=== PATIENT | female | born 1980 | race Caucasian/White ===

== ENCOUNTER 2024-11-22 19:25 | Emergency (ER) | payer OTHER, SELFPAY ==
--- OUTSIDE RECORDS SUMMARY | 2024-11-22 19:28 | XMS_ITS | Encounter Summary ---
Author Organization [employer] Address [address], [place] [address] Care Team Providers Care Assistant Secretary Name Role Phone Carlito Tripp MD Primary Care Provider [phone] Reason for Visit * Reason Comments Refill fluticasone propiona te (FLONASE) 50 MCG/ACT nasal solution [Pharmacy Med Name: FLUTICASONE PROP 50 MCG SPRAY]; omeprazole (PRILOSEC) 20 MG capsule [Pharmacy Med Name: OMEPRAZOLE DR 20 MG CAPSULE] Encounter Details Date Type Department Care Team (Late st Contact Info) Description 11/14/[address] [facility] Medicine [address] [place] [address] Carlito Tripp [place] [id number] [place] [id number] Refill (fluticasone propionate (FLONASE) 50 MCG/ACT nasal solution [Pharmacy Med Name: FLUTICASONE PROP 50 MCG SPRAY]; omeprazole (PRILOSEC) 20 MG capsule [Pharmacy Med Name: OMEPRAZOLE DR 20 MG CAPSULE]) Social History Tobacco Use Types Packs/Day Years Used Date Smoking Tobacco: Every Day Cigarettes 0.5 13 Smokeless Tobacco: Former Quit: 10/02/2016 Comments:Smoking History Pac ks/day: Alcohol Use Standard Drinks/Week Comments Yes 4 (1 standard drink = 0.6 oz pur e alcohol) PHQ-2 Answer Date Recorded PHQ-2 Score 0 09/19/2020 Financial Resource Strain Answer Date R ecorded Is it hard for you to pay fo r the very basics like food, housing, medical care or heating? No 07/29/2023 Food Insecurity Answer Date Recorded Does your food run out before you have the money to buy more? No 07/29/2023 Transportation Needs Answer Date Record ed Does a lack of transportatio n keep you from your medical appointments or from getting your medications? 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 Requested Prescriptions Pending Prescriptions Disp Refills ??? fluticasone propionate (FLONASE) 50 MCG/ACT nasal solution [Pharmacy Med Name: FLUTICASONE PROP50 MCG SPRAY] 48 mL 0 Sig: SPRAY 2 SPRAYS INTO EACH NOSTRIL EVERY DAY ??? omeprazole (PRILOSEC) 20 MG capsule [Pharmacy Med Name: OMEPRAZOLE DR 20 MG CAPSULE] 90 Capsule0 Sig: TAKE 1 CAPSULE (20 MG) BY MOUTH EVERY DAY 1 HOUR BEFORE A MEAL. * Brooke Malave RN - 11/17/2024 3:41 PM CDT Renewed medication per medication refill standing order. Requested Prescriptions Pending Prescriptions Disp Refills ??? fluticasone propionate (FLONASE) 50 MCG/ACT nasal solution [Pharmacy Med Name: FLUTICASONE PROP50 MCG SPRAY] 48 mL Sig: SPRAY 2 SPRAYS INTO EACH NOSTRIL EVERY DAY ??? omeprazole (PRILOSEC) 20 MG capsule [Pharmacy Med Name: OMEPRAZOLE DR 20 MG CAPSULE] 90 Capsule0 Sig: TAKE 1 CAPSULE (20 MG) BY MOUTH EVERY DAY 1 HOUR BEFORE A MEAL. * Oli Pendleton [employer] - 11/14/2024 12:24 AM CDT fluticasone propionate (FLONASE) 50 MCG/ACT nasal solution [Pharmacy Med Name: FLUTICASONE PROP 50 MCG SPRAY] Medication started: 04/06/2022 Last ordered by CARLITO TRIPP: 07/29/2024 (108 days ago) QTY: 3, Refills: 0, Sig: spray 2 spraysinto each nostril every day (unchanged) -> An office visit is overdue (performed 13 months ago, required every 12 months). -> Refill x 1 month (courtesy refill. overdue for an office visit) -> Calculate the quantity and number of refills manually. Last qualifying visit: 10/30/2023 (with CARLITO TRIPP) (A more recent visit (in Family Practice with EDGAR NGUYEN) was found) Next scheduled visit: 11/30/2024 (with CARLITO TRIPP) [facility] Embedded Refills, Reference: [id number], 11/14/2024 12:24:54 AM Dayana NÚÑEZ Refill [facility] [[id number]] ([id number]) omeprazole (PRILOSEC) 20 MG capsule [Pharmacy Med Name: OMEPRAZOLE DR 20 MG CAPSULE] Medication started: 08/19/2019 Last ordered by CARLITO TRIPP (90 days ago) QTY: 90, Refills: 0, Sig: take 1 capsule(20 mg) by mouth every day 1 hour before a meal. (unchanged) -> An office visit is overdue (performed 13 months ago, required every 12 months). -> Refill x 1 month (courtesy refill. overdue for an office visit) Last qualifying visit: 10/30/2023 (with CARLITO TRIPP) (A more recent visit (in Family Practice with EDGAR NGUYEN) was found) Next scheduled visit: 11/30/2024 (with CARLITO TRIPP) [facility] Embedded Refills, Reference: [id number], 11/14/2024 12:24:54 AM Wander NÚÑEZ: MALIA Refill [facility] [[id number]] ([id number]) documented in this encounter Plan of Treatment Upcoming Encounters Date Type Department Care Team (Late st Contact Info) Description 11/30/2024 2:00 PM CDT Appointment [facility] [address] [place], [place] [id number] [place] [address] [place] [address] [place] [id number] documented as of this encounter Visit Diagnoses Diagnosis Gastroesophageal reflux disease without esophagitis Esophageal reflux documented in this encounter Care Teams Assistant Secretary Relationship Specialty Start Date End Date Carlito Tripp MD [address] [place] [address] Dr MU[address]OZ [place] [phone] PCP - General Family Practice 12/28/18 documented as of this encounter
--- OUTSIDE RECORDS SUMMARY | 2024-11-22 19:28 | XMS_ITS | Clinical Summary ---
Author Organization [employer] [facility] Address [address] [place] [id number] Care Team Providers Care Wood Web Weaving Machine Operator Name Role Phone WestJacques caballero MD Primary Care Provider Allergies Active Allergy Reactions Criticality Noted Date Comments Azithromycin 01/08/2010 Erythromycin 01/08/2010 Medications norgestimate-ethin yl estradiol (TRI-SPRINTEC) 0.18/0.215/0.25 mg-35 mcg (28) tablet Take 1 tablet by mouth once daily. 1 Package PRN 01/09/20 10 Active citalopram (CELEXA) 40 mg tablet Take 1 tablet by mouth once daily. 0 01/09/20 10 Active predniSONE (DELTASONE) 10 mg tablet Take by mouth. Take up to 4 pills in the am for up to 5 days 20 tablet 0 01/12/20 10 Active naproxen (NAPROSYN) 500 mg tabletIndications: Sprain of medial collateral ligament of right knee, initial encounter Take 1 tablet by mouth 2 times daily with meals. 20 tablet 03/30/20 16 Active CrutchIndications: Sprain of medial collateral ligament of right knee, initial encounter For home use. 1 Device 03/30/20 16 Active HYDROcodone-acetam inophen, 5-325 mg, (NORCO) per tabletIndications: Closed displaced fracture of fourth metatarsal bone of left foot, initial encounter Take 1 tablet by mouth every 4 hours if needed for Pain Max acetaminophen dose: 4000 mg in 24 hrs. 15 tablet 07/13/19 17 Active ondansetron (ZOFRAN ODT) 4 mg disintegrating tabletIndications: Closed displaced fracture of fourth metatarsal bone of left foot, initial encounter Place 1 tablet on the tongue every 8 hours if needed for Nausea/Vomiting. 10 tablet 07/13/19 17 Active Social History Tobacco Use Types Packs/Day Years Used Date Smoking Tobacco: Every Day Alcohol Use Standard Drinks/Week Comments Not Asked 0 (1 standard drink = 0.6 oz pur e alcohol) Comments No Sex and Gender Information Value Date Recorded Sex Assigned at Not on file Legal Sex Female 7:57 AM CARAMEL CUTTER MACHINE Gender Identity Not on file Sexual Orientation Not on file Obstetrics History Last Filed Vital Signs Vital Sign Reading Time Taken Comments Blood Pressure 118/62 07/13/2016 4:40 AM CARAMEL CUTTER MACHINE Pulse 78 07/13/2016 4:40 AM CARAMEL CUTTER MACHINE Temperature 37.1 C (98.7 F) 07/13/2016 2:02 AM CARAMEL CUTTER MACHINE Respiratory Rate 18 07/13/2016 4:40 AM CARAMEL CUTTER MACHINE Oxygen Saturation 99% 07/13/2016 4:40 AM CARAMEL CUTTER MACHINE Inhaled Oxygen Concentration - - Weight 81.6 kg (180 lb) 07/13/2016 2:02 AM CARAMEL CUTTER MACHINE Height 165.1 cm (5' 5) 07/13/2016 2:02 AM CARAMEL CUTTER MACHINE Body Mass Index 29.95 07/13/2016 2:02 AM CARAMEL CUTTER MACHINE Plan of Treatment Health Maintenance Due Date Last Done Comments Tdap 1989 Depression screening for age 12+ 1990 HIV for age 15-65 1993 BMI (ht and wt on same day) for age 18+ 1996 Hepatitis C screening for ag e 18-79 1996 Hepatitis B series for 19+ ( 1 of 3 - 19+ 3-dose series) 1997 Tetanus booster 1998 Pap test for age 21-65 09/07/1999 Colonoscopy through age 75 09/07/2023 Lipids for age 45-75 09/07/2023 Mammogram for age 45-75 09/07/2023 COVID-19 vaccine series ( - 2023- season) 2024 Influenza Vaccine (Season Ended) 2025 Pneumococcal series for age 6-49 Aged Out No longer eligible based on patient's age to complete this topic Insurance [employer] [place] [id number] Care Teams Wood Web Weaving Machine Operator Relationship Specialty Start Date End Date Jacques Tate MD PCP - General Family Practice 03/04/13
--- OUTSIDE RECORDS SUMMARY | 2024-11-22 19:28 | XMS_ITS | Clinical Summary ---
Author Organization [facility] Address [address] [address] Care Team Providers Care Mexican Food Cook Name Role Phone Carlito Tripp MD Primary Care Provider [phone] Source Comments You are receiving this document as you are listed as the primary care provider,follow-up provider, or the patient has been referred to you for consultation.This is in compliance with the Medicare and[facility] EHR Incentive Program,which states Providers who transition their patient to another setting of careor provider of care or refers their patient to another provider of care shouldprovide summary care record for each transition of care or referral. [facility] Allergies Active Allergy Reactions Criticality Noted Date Comments Azithromycin Gastrointestinal 05/06/2016 Erythromycin Gastrointestinal 08/22/2004 Medications * This document contains information received from the source organization and may not represent a complete record from that organization. Multiple Vitamin (MULTIVITAMINS OR) 1 Tablet daily. Active cholecalciferol (VITAMIND3) 50 MCG (2000 UT) tablet Take 1 Tablet (2,000 Units) by mouth daily. Active cetirizine (ZYRTEC) 10 MG tablet Take 1 Tablet (10 mg) by mouth daily. 90 Tablet 3 4 Active levalbuterol (XOPENEX HFA) 45 mcg/actuation inhaler Inhale 1-2 Puffs every 4 hours as needed for Wheezing. 15 g 4 Active ALBUterol sulfate HFA 108 (90 Base) MCG/ACT inhaler Inhale 1-2 Puffs every 4 hours as needed for Wheezing. 18 g 4 Active citalopram (CELEXA) 20 MG tabletIndicatio ns:HORACE (generalized anxiety disorder) (HRC) TAKE 1 AND 1/2 TABLETS (30 MG) BY MOUTH DAILY 135 Tablet 5 Active fluticasone propionate (FLONASE) 50 MCG/ACT nasal solution SPRAY 2 SPRAYS INTO EACH NOSTRIL EVERY DAY 48 mL 5 Active omeprazole (PRILOSEC) 20 MG capsuleIndicati ons:Gastroesoph ageal reflux disease without esophagitis TAKE 1 CAPSULE (20 MG) BY MOUTH EVERY DAY 1 HOUR BEFORE A MEAL. 90 Capsule 5 Active citalopram (CELEXA) 20 MG tabletIndicatio ns:HORACE (generalized anxiety disorder) (HRC) Take 1.5 Tablets (30 mg) by mouth daily. 135 Tablet 4 4 025 Discontinued fluticasone propionate (FLONASE) 50 MCG/ACT nasal solution SPRAY 2 SPRAYS INTO EACH NOSTRIL EVERY DAY 3 Each 5 025 Discontinued omeprazole (PRILOSEC) 20 MG capsuleIndicati ons:Gastroesoph ageal reflux disease without esophagitis TAKE 1 CAPSULE (20 MG) BY MOUTH EVERY DAY 1 HOUR BEFORE A MEAL. 90 Capsule 5 025 Discontinued Active Problems Problem Noted Date Diagnosed Date Irritable bowel syndrome, unspecified 06/24/2024 Hyperlipidemia, unspecified 06/24/2024 Nicotine dependence, cigarettes, uncomplicated 0 06/24/2024 Fatty liver 09/19/2020 Gastroesophageal reflux disease 08/26/2018 Family history of colon cancer 08/26/2018 Cervical high risk HPV (human papillomavirus) te st positive 06/25/2018 Overview (04/21/2022): [facility] Review: History: (hx LEEP 2009, DERIK 2) 06/2015: ASCUS HPV+ (16). Orosi DERIK 1-2 12/2015: LEEP DERIK 3, neg margins 08/2016: LSIL HPV neg. Visual colp neg, no bx 06/2017: NILM HPV+ (other). Orosi deferred to post 06/2018: NILM HPV+ (other). Orosi recommended, not done. 05/2020: NILM HPV+ (other) 04/2021: Orosi neg Plan, per ASCCP guidelines: Co-test in 12 months (04/2022) delivery delivered 04/24/2018 Major depressive disorder in partial remission 1 06/10/2016 Overview (04/10/2017): On Celexa Tobacco use 11/21/2016 Anxiety 11/21/2016 Overview (11/21/2016): On Celexa Resolved Problems Problem Noted Date Diagnosed Date Resolved Date Strain of calf muscle 02/17/20242023 GBS (group B Streptococcus c arrier), +RV culture, currently 04/08/2018 06/11/2018 Antepartum multigravida of a dvanced maternal age 0510/17/2017 06/11/2018 Overview (12/11/2017): 1st trimester screening and Level 2 normal. Previous delivery a ffecting , antepartum 10/17/2017 06/11/2018 Overview (10/17/2017): Planning repeat with tubal ligation. Anemia 05/03/2017 06/19/2017 S/P section 05/02/2017 018 32 weeks gestation of 04/19/2017 06/19/2017 Obesity affecting in third trimester 04/15/2017 06/19/2017 Insulin controlled gestation al diabetes mellitus (GDM) in third trimester 03/25/20172018 Vasa previa 02/13/2017 06/19/2017 Overview (02/13/2017): Serial ultrasounds in . Plan hospitalization at 32 weeks with betamethasone, scheduled csection at 35-36 weeks. AMA (advanced maternal age) multigravida 35+ 7 06/19/2017 Overview (11/21/2016): 1st trimester screening and Level 2 scheduled. High risk HPV infection 11/21/201606/02 Overview (10/17/2017): Normal pap. Plan repeat pap/HPV . History of LEEP (loop electr osurgical excision procedure) of cervix complicating 11/21/2016 06/19/2017 Allergic rhinitis 10/02/2016 11/21/2016 Dyspepsia 06/16/2015 11/21/2016 Tobacco use 06/16/2015 10/02/2016 Hyperlipidemia 04/02/2013 11/21/2016 HORACE (generalized anxiety disorder) 04/02/2013 11/21/2016 Pulmonary nodule 04/22/2012 11/21/2016 Overview (01/03/2016): 4 mm right lower lobe. noted on CT 01/2010. Recheck CT 08/2011 showed no interval change. Ovarian cyst, right 03/02/2012 06/09/19 15 Overview (01/03/2016): Measuring 2.5 x 2.0 x 1.6 cm On Mar 2011 ultrasound. Dysplasia of cervix 04/02/2010 09/10/19 14 Overview (01/22/2017): cin2 s/p LEEP 2008 ; DERIK Squamous Intraepith Lesion Cervix Diarrhea 01/24/2006 03/02/2012 Overview (01/03/2016): LW Onset: [id number] Constipation 01/24/2006 03/02/2012 Overview (01/22/2017): LW Onset: [id number] ; Constipation NOS Esophageal reflux 10/04/2005 07/05/2013 Overview (01/22/2017): Gastroesophageal Reflux Disease Anxiety 04/02/2013 Overview (01/03/2016): On Celexa Tobacco abuse 04/02/2013 Hypertriglyceridemia 013 Overview (01/03/2016): intermittently takes fish oil supplement Encounters Date Type Department Care Team Description 11/14/[address] [place] [address] Carlito Tripp MD Refill (fluticasone propionate (FLONASE) 50 MCG/ACT nasal solution [Pharmacy Med Name: FLUTICASONE PROP 50 MCG SPRAY]; omeprazole (PRILOSEC) 20 MG capsule [Pharmacy Med Name: OMEPRAZOLE DR 20 MG CAPSULE]) 10/22/[address] [address] Carlito Tripp MD Refill (citalopram (CELEXA) 20 MG tablet [Pharmacy Med Name: CITALOPRAM HBR 20 MG TABLET]) from Last 3 Months Immunizations Immunization Administration Dates Next Due DTP 05/14/1985,02/21/1983 Flu Vac (3+ yrs) 02/11/2013 Flu Vac Preserv Free (3+yrs) 03/08/2011, 03/15/2010,02/28/2009, 008,04/17/2007,03/20/2006,04/12/2005 HepA-HepB ([place], 18+ yrs) 08/25/2018,09/04/19 17,11/13/2009 Influenza IIV4 (Quadrivalent ) 0.5mL (11521) 04/13/2021,03/09/2019,03/19/2018, 017,03/13/2016,03/02/2013 Influenza, Unspecified Formulation 06/05,03/13/2016,03/01/2014, 013 MMR 04/26/2018(Deferred: Patient Refused),04/26/2018(Deferred: Contraindication - immunized 1990. no result in epic for rubella. pptl with c/s. patient declines vaccine),12/31/1990 OPV, Trivalent (Orimune or tOPV) 05/14/1985,02/01 PPSV23 (Pneumovax) 09/03/2016 Pfizer Monovalent 12+ Purple Top 10/12/2020,09/01 TDAP (ADACEL) 11/04/2007 Td 12/11/1994 Tdap 04/26/2018(Deferred: Contraindication - tdap current),02/05/2018,03/13/2017 Family History Medical History Relation Name Comments Celiac Disease Father Cancer, Colon Mother Coronary Artery Disease Paternal Uncle Amblyopia/Strabismus Negative Family History Blindness Negative Family History Cancer Negative Family History Cancer, Breast Negative Family History Cancer, Ovary Negative Family History Cataract Negative Family History Diabetes Negative Family History Glaucoma Negative Family History Hypertension Negative Family History Macular Degeneration Negative Family History Retinal Detachment Negative Family History Stroke Negative Family History Thyroid Disorder Negative Family History Relation Name Status Comments Father Alive Mother Alive Brother Alive Maternal Grandfather Maternal Grandmother Paternal Grandfather Paternal Grandmother Paternal Uncle Social History Tobacco Use Types Packs/Day Years Used Date Smoking Tobacco: Every Day Cigarettes 0.5 13 Smokeless Tobacco: Former Quit: 10/02/2016 Tobacco Cessation:Ready to Q uit: Not Asked; Counseling Given: Not Answered Comments:Smoking History Packs/day: Alcohol Use Standard Drinks/Week Comments Yes 4 [...] 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 Not on file Not on file Not on file Last Filed Vital Signs Vital Sign Reading Time Taken Comments Blood Pressure 132/74 10/30/2023 9:59 AM CDT Pulse 76 10/30/2023 9:59 AM CDT Temperature 36.7 C (98 F) 02/13/2023 8:46 AM CDT Respiratory Rate 16 02/13/2023 8:46 AM CDT Oxygen Saturation 100% 02/13/2023 8:46 AM CDT Inhaled Oxygen Concentration - - Weight 87 kg (191 lb 12.8 oz) 10/30/2023 9:59 AM CDT Height 162.6 cm (5' 4) 07/29/2023 11:37 AM [facility] WRITER/RUNNER Body Mass Index 32.92 07/29/2023 11:37 AM [facility]ENO WRITER/RUNNER Plan of Treatment Upcoming Encounters Date Type Department Care Team (Late st Contact Info) Description 11/30/2024 2:00 PM CDT Appointment [facility] Medicine [address] [place], [place] [id number] [place] [address] [place] [phone] Health Maintenance Due Date Last Done Comments Colonoscopy 1978 IPV (Polio) Vaccine (3 of 3 - 4-dose series) 11/12/1985 05/14/1985, 02/21/1983 Pneumococcal Vaccine (2 of 2 - PCV) 09/03/2017 09/03/2016 Cervical Cancer Screening 04/13/20222020, 04/13/2021 (Completed), 05/18/2020, Additional history exists COVID-19 Vaccine ( - season) 2024 10/12/2020, 09/21/2020 Mammogram 07/22/2024 07/22/2023, 06/29/2019 Adult Preventive Visit 07/29/2024 , 06/10/2022, 05/18/2020, Additional history exists Prediabetes: HGBA1C 10/29/2024 10/30/2023, 09/15/2020, 12/31/2018, Additional history exists Influenza Vaccine (Season Ended) 2025 04/13/2021, 03/09/2019, 03/19/2018, Additional history exists DTaP/Tdap/Td Vaccine (7 - Tdap) 02/06/2028 02/05/2018, 03/13/2017, 11/04/2007, Additional history exists Zoster/Shingles Vaccine (1 of 2) 2028 Cholesterol 10/29/2028 10/30/2023, 04/1 10/2020, 12/31/2018, Additional history exists Hep C Screening (Preventive Services) Completed 11/26/2010, 02/27/2010 HIV Screening (Preventive Services) Completed 09/22/2017, 10/29/2016, 10/05/2004 HepA Vaccine Completed 08/25/2018, 0 08/2016, 11/13/2009 HepB Vaccine Completed 08/25/2018, 0 08/2016, 11/13/2009 Hib Vaccine Aged Out No longer eligi ble based on patient's age to complete this topic MCV4 Vaccine Aged Out No longer eligi ble based on patient's age to complete this topic Meningococcal B Vaccine Aged Out No l onger eligible based on patient's age to complete this topic Procedures Procedure Name Priority Date/Time Associated Diagnosis Comments HGB A1C Routine 10/30/2023 11:08 AM CDT Pre-diabetes LIPID PANEL & DIRECT LDL (IF NEEDED) Routine 10/30/2023 11:08 AM CDT Hyperlipidemia, unspecified hyperlipidemia type (HRC) MM MAMMOGRAM SCREENING BILAT W 3D KAMARI W CAD Routine 07/22/2023 9:19 AM [facility]ENO WRITER/RUNNER Encounter for screening mammogram for malignant neoplasm of breast CYTOLOGY (PAP) Routine 05/18/2020 8:55 AM [facility] WRITER/RUNNER High risk HPV infection Screening for malignant neoplasm of cervix HIV-1 P24 AND HIV-1/HIV-2 ANTIBODIES Routine 09/22/2017 9:06 AM CDT Screening examination for venereal disease HEPATITIS C ANTIBODY, WITH REFLEX (ANTI-HCV) Routine 11/26/2010 8:23 AM CDT from Last 3 Months or Most Recently Relevant to Health Maintenance Results * (ABNORMAL) Lipid Panel & Direct LDL (if Needed) (10/30/2023 11:08 AM CDT) Cholesterol 248(H) 0 - 199 mg/dL 10/30/2023 1:07 PM CDT [facility] Triglyceride 119 <=149 mg/dL 10/30/2023 1:07 PM [facility] HDL Cholesterol 49 >=40 mg/dL 4 1:07 PM [facility] LDL, Calculated 175(H) <130 mg/dL 4 1:07 PM [facility] Non HDL Chol, Calculated 199(H) <=159 mg/dL 10/30/2023 1:07 PM [facility] Cholesterol/HDL Ratio 5.1(H) <=5.0 10/30/2023 1:07 PM [facility] Hours Fasting 3.0 8 - 12 Hours 10/30/2023 1:07 PM [facility] Blood Venipuncture / Unknown 10/30/2023 11:08 AM CDT 10/30/2023 11:09 AM CDT us Carlito Tripp MD LAB_1 Final Result Performing Organization Address City/State/[facility] Co de Phone Number [facility] [address] [place] [phone] * Hgb A1C (10/30/2023 11:08 AM CDT) Hemoglobin A1C (Rapid) 5.0 <=5.6 % 10/30/2023 11:58 AM [facility] Estimated Average Glucose (Calc) 97 < 117 mg/dL 10/30/2023 11:58 AM [facility] Comment:Estimated average gl ucose (eAG) converts A1c into glucose units (mg/dL) and estimates average glucose over the past approximately 3 months. The eAG reference interval (<117 mg/dL) corresponds to an A1c of <5.7%. Blood Venipuncture / Unknown 10/30/2023 11:08 AM CDT 10/30/2023 11:09 AM CDT Narrative [facility] - 10/30/2023 11:58 AM CDT The test method used for this Hemoglobin A1c result can experience interference from elevated hemoglobin and other hemoglobin variants. In patients with results that do not correlate clinically, contact the lab for further direction. us Carlito Tripp MD LAB_1 Final Result [facility] [address] [place] [address] * MM Mammogram Screening Bilat W 3D Kamari W CAD (07/22/2023 9:19 AM [facility]ENO WRITER/RUNNER) Anatomical Region Laterality Modality Breast Bilateral Mammography Impressions 07/22/2023 9:50 AM KENO WRITER/RUNNER : ACR BI-RADS Category 1: Negative RECOMMENDATION: Follow Up Imaging in 12 months - Bilateral The results and recommendations of this examination will be communicated to the patient. Narrative 07/22/2023 9:50 AM KENO WRITER/RUNNER MM MAMMOGRAM SCREENING BILAT W 3D KAMARI W CAD performed on 07/22/23 Compared to: 06/29/2019 MM Mammogram Screening Bilat W 3D Kamari W CAD FINDINGS: Bilateral screening mammogram was performed with the assistance of Computer-Aided Detection and breast tomosynthesis. The breasts have scattered areas of fibroglandular density. There is no radiographic evidence of malignancy. Carlito Tripp MD RAD QAMAR Final Result * PAP Test (05/18/2020 8:55 AM [facility]ENO WRITER/RUNNER) Case Report Pap Case: [id number] Authorizing Provider: Nemo Mejia MD Collected: 05/18/2020 0855 Ordering Location: [place] Received: 05/18/2020 1210 Obstetrics/Gynec ology First Screen: Nault, Day E, CT (ASCP) Rescreen: Leslie Steele CT (ASCP) Specimen: Pap Test, Diagnostic, Cervix/Endocervix 06/01/2020 10:50 AM KENO WRITER/RUNNER [facility] Pap Specimen Adequacy Satisfactory for evaluation, endocervical/colmenares sformation zone component present. 06/01/2020 10:50 AM KENO WRITER/RUNNER [facility] Pap Interpretation Negative for intraepithelial lesion or malignancy (NILM). 06/01/2020 10:50 AM KENO WRITER/RUNNER [facility] at 1049 [facility] WRITER/RUNNER Pap Disclaimer The Pap test is a screening test designed to aid in the detection of cervical cancer and its precursor lesions. It is not a diagnostic procedure and should not be used as the sole means of detecting cervical cancer. Both false-positive and false-negative results may occur. 06/01/2020 10:50 AM KENO WRITER/RUNNER [facility] Gross Description The specimen is received in SurePath fixative and properly labeled. 1 Pap-stained SurePath slide is prepared. 06/01/2020 10:50 AM KENO WRITER/RUNNER [facility] Embedded Images 0 10:50 AM KENO WRITER/RUNNER [facility] Other Specimen Type ENTIRE ENDOCERVIX / Unknown 05/18/2020 8:55 AM KENO WRITER/RUNNER 05/18/2020 12:10 PM [facility] WRITER/RUNNER Comment:LMP: Patient's last menstrual period was 05/04/2020 (exact date). us Nemo Mejia MD LAB PATHOLOGY Final Result Performing Organization Address [facility] Co de Phone Number [facility] [address] [place] [id number] [place] [address] * LAB HIV-1 p24 AND HIV-1/HIV-2 ANTIBODIES (09/22/2017 9:06 AM CDT) HIV-1 p24 Ag and HIV-1/HIV-2 Ab Nonreactive Nonreactive PN SOFT 09/22/2017 9:06 AM CDT 09/22/2017 11:46 AM CDT Narrative PN SOFT - 09/22/2017 12:51 PM CDT Performed at [facility], [address] [place] [id number] CLIA number [id number] us Joyce Clifford BRASS BOBBIN WINDER, GRADES 1 THRU 6 VISITING TEACHER LAB_1 Final Result Performing Organization Address [facility] Co de Phone Number PN SOFT [address] [place] [address] * Hepatitis C Antibody, with Reflex (11/26/2010 8:23 AM CDT) Hepatitis C Antibody Non-React Non-Reacti ve HP CONVERSION 11/26/2010 8:23 AM CDT us Heladio Sanchez MD LAB_1 Final Result HP CONVERSION from Last 3 Months or Most Recently Relevant to Health Maintenance Insurance HP SELF INSURED HP SELF INSURED HP SELF INSURED HP SELF INSURED Advance Directives * Full Code (Latest Code Status on File) Date Activated Date Inactivated Comments 04/24/2018 1:12 PM 04/26/2018 6:45 PM * Full Code Date Activated Date Inactivated Comments 05/02/2017 3:28 PM 05/04/2017 2:59 PM * Full Code Date Activated Date Inactivated Comments 04/15/2017 9:01 AM 05/02/2017 3:28 PM * Full Code Date Activated Date Inactivated Comments 09/17/2013 10:21 AM 09/17/2013 9:23 PM Care Teams Mexican Food Cook Relationship Specialty [place] [address] [place] [address] PCP - General Family Practice 12/28/18
--- OUTSIDE RECORDS SUMMARY | 2024-11-22 19:28 | XMS_ITS | Encounter Summary ---
Author Organization [facility] Address [address], [place] [address] Care Team Providers Care Ground Support Agent Name Role Phone Carlito Tripp MD Primary Care Provider [phone] Reason for Visit * Reason Comments Refill citalopram (CELEXA) 20 MG tablet [Pharmacy Med Name: CITALOPRAM HBR 20 MG TABLET] Encounter Details Date Type Department Care Team (Late st Contact Info) Description 10/22/2024 Refill [facility] Medicine [address] [place] [address] [place] [id number] [place] [address] Refill (citalopram (CELEXA) 20 MG tablet [Pharmacy Med Name: CITALOPRAM HBR 20 MG TABLET]) Social History Tobacco Use Types Packs/Day Years [...] 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 Requested Prescriptions Pending Prescriptions Disp Refills ??? citalopram (CELEXA) 20 MG tablet [Pharmacy Med Name: CITALOPRAM HBR 20 MG TABLET] 135 Tablet 0 Sig: TAKE 1 AND 1/2 TABLETS (30 MG) BY MOUTH DAILY * Oli Pendleton [employer] - 10/22/2024 12:09 AM CDT citalopram (CELEXA) 20 MG tablet [Pharmacy Med Name: CITALOPRAM HBR 20 MG TABLET] Medication started: 09/03/2019 Last ordered by CARLITO TRIPP: 07/29/2023 (451 days ago) QTY: 135, Refills: 4, Sig: take 1.5 tablets (30 mg) by mouth daily. (changed but equivalent) -> Refill x 3 months (until due for an office visit) Last qualifying visit: 10/30/2023 (with CARLITO TRIPP) (A more recent visit (in Family Practice with EDGAR NGUYEN) was found) Next scheduled visit: None Age: 44 [employer] Embedded Refills, Reference: [id number], 10/22/2024 12:09:05 AM CDT, [facility] - Primary Care [[id number]] ([id number]) documented in this encounter Plan of Treatment Upcoming Encounters Date Type Department Care Team (Late st Contact Info) Description 11/30/2024 2:00 PM CDT Appointment [facility] [address] [place] [address] [place] [address] [place] [phone] documented as of this encounter Visit Diagnoses Diagnosis HORACE (generalized anxiety disorder) ([facility]) Generalized anxiety disorder documented in this encounter Care Teams Ground Support Agent Relationship Specialty Start [place] [address] [place] [address] PCP - General Family Practice 12/28/18 documented as of this encounter
[2024-11-22 19:31] VITALS: BP 163/81; PULSE 99; RESP 18; TEMP 36.7; O2SAT 99; BMI 30.9
--- NOTE | 2024-11-22 19:43 | ED.GENADULT ---
HPI - General Adult General Time Seen by Provider: 19:43 Date Seen: 11/22/24 Chief complaint: Dizziness/Vertigo Stated complaint: dizziness Time Seen by Provider: 11/22/24 19:43 Source: patient and RN notes reviewed Mode of arrival: ambulatory Limitations: no limitations History of Present Illness HPI narrative: Veronica is a very pleasant 44-year-old female with a past history of benign positional vertigo, GERD, tobacco use who comes to the emergency room for evaluation regarding vertigo. And her notes that she had significant vertigo 11-12 years ago since that time every once in a while she will have a little bit of dizziness associated with nausea. She notes that she goes to the chiropractor an adjustment makes it better. This particular episode started on FridayNovember 20. She states she was simply out in the garage having a cigarette. She leaned over to put her cigarette out and had the sudden onset of vertigo and felt like she was falling over. Her grabbed her and helped her enter the house and she went immediately to bed. She felt like maybe the rest of the day was somewhat improved but she was very careful walking and was trying not to move her head. On Friday morning when she awoke she had nausea vomiting and went into the bathroom where she also had some loose stools. She notes that the spinning sensation would occur whenever she would look up or down. She decided to go to the chiropractor today. He did some manipulation and I do ask if he ?cracked? the neck and she stated yes. Since that time she has had worsened symptoms. She notes no double vision but states she her eyes are tired. She also had some arm tingling over the weekend but attributed that to a tight neck. She has not had any fever. She has not had any abdominal pain. She denies any possibility of . She has not experienced any numbness or tingling at this time. Over the past 2 weeks patient has also noted a whooshing type sound in her right ear that is intermittent. She states that sounds like water. Related Data Home Medications ?Medication ?Instructions ?Recorded ?Confirmed citalopram 20 mg tablet 20 mg PO DAILY 09/10/22 09/10/22 fluticasone propionate 50 intranasal 09/10/22 09/10/22 mcg/actuation nasal spray,suspension omeprazole 20 mg capsule,delayed 20 mg PO DAILY 09/10/22 09/10/22 release Previous Rx's ?Medication ?Instructions ?Recorded meclizine 25 mg tablet 25 mg PO TID PRN #30 tabs 11/22/24 Allergies Allergy/AdvReac Type Severity Reaction Status Date / Time amoxicillin (From Augmentin) Allergy Unknown Verified 09/10/22 15:12 azithromycin Allergy Unknown Verified 09/10/22 15:12 clavulanic acid (From Allergy Unknown Verified 09/10/22 15:12 Augmentin) Review of Systems Status of ROS: Reports: 10 or more systems reviewed and unremarkable except as noted in History and below Const: Reports: fatigue; Denies: fever or chills Eyes: Denies: eye discharge ENMT: Reports: neck pain (Described as tightness) and vertigo; Denies: throat pain or nasal congestion Cardio: Denies: chest pain, swelling of feet/ankles or shortness of breath with exertion Resp: Denies: shortness of breath or cough GI: Reports: nausea, vomiting and diarrhea; Denies: abdominal pain : Denies: painful urination or urinary frequency Musculo: Reports: neck pain (Described as tightness); Denies: back pain or extremity pain Integ/Breast: Denies: rash Neuro: Reports: vertigo; Denies: headache, numbness in extremities, confusion or slurred speech Endo: Reports: fatigue PFSH PFSH Social History Smoking Status: Former smoker How often do you have a drink containing alcohol: never AUDIT-C Alcohol total score: 0 Non-prescribed substance use: denies use Exam Narrative: Exam Narrative: Veronica is alert and oriented. Very guarded in her movement and staring straight ahead. Pupils are equal round reactive. Face is symmetrical. EOM is full. No nystagmus noted. Head is atraumatic. Right TM within normal limits. Left TM within normal limits. Oral cavity with moist mucous membranes tongue is midline neck is supple. No lymphadenopathy. Heart with regular rate and rhythm and lungs are clear bilaterally. Abdomen soft. Upper extremity strength and motor intact. As his lower extremity. Const: Vital Signs, click to edit/add: Vital Signs - 24 hr 11/22/24 19:31 11/22/24 20:14 11/22/24 20:16 Temperature 98.0 F Pulse Rate [Pulse Oximeter] 99 69 Respiratory Rate 18 16 Blood Pressure [Le ft Upper Arm] 134/81 Blood Pressure [Ri ght Upper Arm] 163/81 H 140/95 H Pulse Oximetry 99 96 Oxygen Delivery Me thod Room Air Room Air Course Course ED Course: Differential diagnosis includes but is not limited to benign positional vertigo, vertebral artery dissection, labyrinthitis, At this time will place IV and collect blood for CBC, comprehensive, urinalysis. Given worsening symptoms after emergency care attendant high velocity adjustment would suggest CT CTA of the head and neck. Patient is in agreement with this. Reevaluation(s) Reevaluation #1: Patient noted improvement after Valium. Vital Signs Vital signs: Initial Vital Signs Temperature 98.0 F 11/22/24 19:31 Temperature Source Temporal Artery Scan 11/22/24 19:31 Pulse Rate 99 11/22/24 19:31 Pulse Rhythm Regular 11/22/24 19:31 Respiratory Rate 18 11/22/24 19:31 Blood Pressure 163/81 H 11/22/24 19:31 Blood Pressure Mean 108 H 11/22/24 19:31 Blood Pressure Position Supine 11/22/24 19:31 Pulse Oximetry 99 11/22/24 19:31 Oxygen Delivery Method Room Air 11/22/24 19:31 Vital Signs Temperature 98.0 F 11/22/24 19:31 Pulse Rate 99 11/22/24 19:31 Respiratory Rate 18 11/22/24 19:31 Blood Pressure 163/81 H 11/22/24 19:31 Pulse Oximetry 99 11/22/24 19:31 Oxygen Delivery Method Room Air 11/22/24 19:31 Temperature 98.0 F 11/22/24 19:31 Pulse Rate 69 11/22/24 20:14 Respiratory Rate 16 11/22/24 20:14 Blood Pressure 134/81 11/22/24 20:16 Pulse Oximetry 96 11/22/24 20:14 Oxygen Delivery Method Room Air 11/22/24 20:14 Medications Administered Medications: Discontinued Medications Generic Name Dose Route Start Last Admin Trade Name Freq PRN Reason Stop Dose Admin Diazepam 5 mg 11/22/24 19:58 11/22/24 20:13 Diazepam 5 Mg/Ml Inj IV 11/22/24 19:59 5 mg ONCE ONE Administration Sodium Chloride 1,000 mls @ 1,000 mls/hr 11/22/24 19:58 11/22/24 21:38 0.9 % Sodium Chloride 1000 Ml IV 11/22/24 20:57 Infused .Q1H JOHN Infusion Medical Decision Making MDM Narrative Medical decision making narrative: 1. Vertigo-patient had reassuring head CT as well as CTA after chiropractic manipulation today. Patient has had history of benign positional vertigo in the past which may explain her symptoms but she has also been experiencing nausea vomiting and some loose stools and so there may be a viral component to this. She is improved after the Valium. I have prescribed meclizine 25 mg t.i.d. p.r.n. for her vertigo. Demonstrated slow head movements upon awakening in the morning. Recommend pushing fluids. While on meclizine would like her to avoid any alcohol or other sedating medications. Physical therapy prescription for Chichi maneuver sent to PT. 2. Nausea/vomiting-patient prescribe Zofran ODT 4 mg t.i.d. p.r.n. nausea. Via [employer]. 3. Tinnitus-right ear with intermittent wishing sensation. Have offered follow-up with our ENT. 4. Disposition-home at this time. Seek medical attention for worsening symptoms and as needed. Medical Records Medical records reviewed: Yes I reviewed the patient's medical records Lab Data Lab results reviewed: Yes I reviewed the patient's lab results Labs: Lab Results 11/22/24 11/22/24 Range/Units 20:10 20:19 WBC 7.52 (4.50-11.00) K/uL RBC 4.44 (4.00-5.20) m/uL Hgb 11.7 L (12.0-16.0) gm/dL Hct 38.2 (33.0-51.0) % MCV 86 (80-100) fL MCH 26 (26-34) pg MCHC 31 L (32-36) gm/dL RDW Coeff of Edmund 16.3 H (11.5-15.5) % Plt Count 303 (140-440) K/uL Neut % (Auto) 63.9 (42.0-72.0) % Lymph % (Auto) 27.0 (20-44) % [place] % (Auto) 7.0 (0.0-11.0) % Eos % (Auto) 1.5 (0.0-7.0) % Baso % (Auto) 0.5 (0.0-3.0) % Neut # (Auto) 4.80 (1.7-7.0) K/uL Lymph # (Auto) 2.03 (0.90-2.90) K/uL [place] # (Auto) 0.50 (0.00-0.90) K/UL Eos # (Auto) 0.11 (0.00-0.50) K/uL Baso # (Auto) 0.04 (0.00-0.30) K/uL Abs Immat Gran (auto) 0.01 (0.00-0.30) K/uL Imm/Tot Granulo (auto) 0.1 % Sodium 136 (135-149) mmol/L Potassium 3.5 L (3.6-5.1) mmol/L Chloride 103 (96-114) mmol/L Carbon Dioxide 28 (20-32) mmol/L Anion Gap 5 L (7-15) mEq/L BUN 5 (5-24) mg/dL Creatinine 0.6 (0.5-1.5) mg/dL Estimated Creat Clear 101.17 Estimated GFR 112 ml/min Glucose 97 (60-115) mg/dL Calcium 8.8 (8.4-10.6) mg/dL Total Bilirubin 1.0 (0.1-1.5) mg/dL AST 47 H (12-35) U/L ALT 39 H (4-35) U/L Alkaline Phosphatase 72 (40-150) U/L Total Protein 7.5 (6.0-8.3) g/dL Albumin 4.3 (3.3-5.0) g/dL Urine Color Yellow (Yellow) Urine Appearance Clear (Clear) Urine pH 6.0 (5.0-8.5) Ur Specific Gray 1.010 (1.000-1.030) Urine Protein 1+ A (Negative) Urine Glucose (UA) Negative (Negative) Urine Ketones Negative (Negative) Urine Blood 1+ A (Negative) Urine Nitrite Negative (Negative) Urine Bilirubin Negative (Negative) Urine Urobilinogen 0.2 (0.2-1.0) Ur Leukocyte Esterase Negative (Negative) Urine RBC 0-2 (0-2) Urine WBC 0-2 (0-5) Ur Squamous Epith Cells Moderate A (None-Few) Urine Bacteria None (None) Imaging Data CT scan - head: Attestation: I have reviewed the pertinent imaging results. My impression: By my read no acute findings Radiologist's impression: CSF space: The ventricles are normal for age. Brain: No evidence of mass, acute infarction or hemorrhage is seen. No mass-effect or midline shift is seen. The brain parenchyma is otherwise normal in appearance with preservation of the bailey-white matter junction. Calvarium: The visualized paranasal sinuses are well aerated. The mastoid air cells are clear. The visualized orbits are grossly unremarkable. The calvarium is unremarkable in appearance with no fractures identified. IMPRESSION: 1. No evidence of acute infarction, intracranial hemorrhage, or mass-effect seen. CTA head and neck: Attestation: I have reviewed the pertinent imaging results. Radiologist's impression: 1. The [place] is unremarkable with no significant stenosis, occlusion, or aneurysm identified. 2. The neck vessels shows no evidence of dissection, significant stenosis in the common or internal carotid arteries, vertebral arteries, or visualized great vessels of the chest. Discharge Plan Discharge Clinical Impression: Vertigo Patient Disposition: Home, Self-Care Condition: Improved Additional Instructions: 1. Meclizine may be used for dizziness and vertigo. Please do not consume alcohol or use any other sedating medications when on this medicine. Unfortunately this medicine not available in our [facility] machine but was sent to your pharmacy. 2. Zofran may be used for any nausea. This medication is available in our [facility] machine. Hopefully by controlling your vertigo with meclizine you will not experience any nausea. 3. Push fluids and stay well hydrated. 4. Move your head slowly when getting up in the morning. 5. I will send a prescription for Chichi maneuver to our physical therapy team here in [place]. The phone number is [phone] if you do not receive a phone call in the next 24 hours. 6. Our ENT practices both in [place] and [place]. His name is Dr. Lindsey and an appointment can be made by calling [phone]. 7. Return to the ER for worsening symptoms and as needed. Prescriptions: New meclizine 25 mg tablet 25 mg PO TID PRNQty: 30 0RF No Action citalopram 20 mg tablet 20 mg PO DAILY fluticasone propionate 50 mcg/actuation spray,suspension intranasal Patient Comments: [NO ORIGINAL SIG] omeprazole 20 mg capsule,delayed release(DR/EC) 20 mg PO DAILY Follow Up/Referrals: Provider,Not a Local [Primary Care Provider, Family Practice] Stand Alone Forms: [employer] Info Instructions
--- NOTE | 2024-11-22 19:57 | CRLHL7_ITS ---
For Patients: As a result of the Century Cures Act, medical imaging exams and procedure reports are released immediately into your electronic medical record. You may view this report before your referring provider. If you have questions, please contact your health care provider. INDICATION: Vertigo post care tech. TECHNIQUE: CTA head with contrast bolus tracking, 3D angiographic rendering using maximum intensity projection (MIP) and images permanently archived. FINDINGS: There is normal opacification of the intracranial vasculature. There is no large vessel occlusion. No aneurysm is identified. IMPRESSION: No acute intracranial abnormality at CTA. Please note that all CT scans at this facility use dose modulation, iterative reconstruction, and/or weight-based dosing when appropriate to reduce radiation dose to as low as reasonably achievable. Dictated by Ethan Diaz MD @ 11/23/2024 8:13:50 AM (Electronically Signed)
--- NOTE | 2024-11-22 19:57 | CRLHL7_ITS ---
For Patients: As a result of the Cures Act, medical imaging exams and procedure reports are released immediately into your electronic medical record. You may view this report before your referring provider. If you have questions, please contact your health care provider. INDICATION: Vertigo post health care assistant TECHNIQUE: CT Head without i.v. contrast. Coronal and sagittal reformats were obtained. COMPARISON: None FINDINGS: CSF space: The ventricles are normal for age. Brain: No evidence of mass, acute infarction or hemorrhage is seen. No mass-effect or midline shift is seen. The brain parenchyma is otherwise normal in appearance with preservation of the bailey-white matter junction. Calvarium: The visualized paranasal sinuses are well aerated. The mastoid air cells are clear. The visualized orbits are grossly unremarkable. The calvarium is unremarkable in appearance with no fractures identified. IMPRESSION: 1. No evidence of acute infarction, intracranial hemorrhage, or mass-effect seen. Please note that all CT scans at this facility use dose modulation, iterative reconstruction, and/or weight-based dosing when appropriate to reduce radiation dose to as low as reasonably achievable. Dictated by: Cecil Mena MD @ 11/22/2024 20:48:41 (Electronically Signed)
--- NOTE | 2024-11-22 19:57 | CRLHL7_ITS ---
For Patients: As a result of the Century Cures Act, medical imaging exams and procedure reports are released immediately into your electronic medical record. You may view this report before your referring provider. If you have questions, please contact your health care provider. INDICATION: Vertigo post clinical care manager. TECHNIQUE: CTA neck with contrast bolus tracking, 3D angiographic rendering using maximum intensity projection (MIP) and images permanently archived. FINDINGS: There is carotid atherosclerosis on the right. There is no significant carotid artery stenosis or dissection. There is no significant vertebral artery stenosis or dissection. The soft tissues of the neck are within normal limits. The cervical spine is in normal alignment. Degenerative changes are noted in the cervical spine. IMPRESSION: No significant carotid or vertebral artery stenosis or dissection. Please note that all CT scans at this facility use dose modulation, iterative reconstruction, and/or weight-based dosing when appropriate to reduce radiation dose to as low as reasonably achievable. Dictated by Ethan Diaz MD @ 11/23/2024 8:15:15 AM (Electronically Signed)
[2024-11-22] MEDS: 0.9 % SODIUM CHLORIDE 1000 ml 1,000 ML IV (20:13)
[2024-11-22] MEDS: diazePAM 5 MG/ML inj IV (20:13)
[2024-11-22 20:14] VITALS: BP 140/95; PULSE 69; RESP 16; O2SAT 96
[2024-11-22 20:16] VITALS: BP 134/81
[2024-11-22 20:20] LABS: Appearance Urine Clear (Clear); Bilirubin Urine Negative (Negative); Blood Urine 1+ (Negative); Color Urine Yellow (Yellow); Glucose Urine Negative (Negative); Ketones Urine Negative (Negative); Leukocyte Esterase Urine Negative (Negative); Nitrite Urine Negative (Negative); Protein Urine 1+ (Negative); Urobilinogen Urine 0.2 (0.2-1.0)
[2024-11-22 20:41] LABS: Albumin* 4.3 g/dL (3.3-5.0); Chloride* 103 mmol/L (96-114); Potassium* 3.5 mmol/L (3.6-5.1); Sodium* 136 mmol/L (135-149)
[2024-11-22 20:44] LABS: Alanine Aminotransferase* 39 U/L (4-35); Alkaline Phosphatase* 72 U/L (40-150); Anion Gap 5 mEq/L (7-15); Aspartate Amino Transferase* 47 U/L (12-35); Blood Urea Nitrogen* 5 mg/dL (5-24); Calcium* 8.8 mg/dL (8.4-10.6); Carbon Dioxide* 28 mmol/L (20-32); Creatinine* 0.6 mg/dL (0.5-1.5); Est. Creatinine Clearance* 101.17; Estimated Glomerular Filt Rate 112 ml/min; Glucose* 97 mg/dL (60-115); Total Protein* 7.5 g/dL (6.0-8.3)
[2024-11-22 20:52] LABS: Basophils Absolute Auto 0.04 K/uL (0.00-0.30); Basophils Percent Auto 0.5 % (0.0-3.0); Eosinophils Absolute Auto 0.11 K/uL (0.00-0.50); Eosinophils Percent Auto 1.5 % (0.0-7.0); Hematocrit 38.2 % (33.0-51.0); Hemoglobin* 11.7 gm/dL (12.0-16.0); Immature Granulocytes Abs Auto 0.01 K/uL (0.00-0.30); Immature Granulocytes Pct Auto 0.1 %; Lymphocytes Absolute Auto 2.03 K/uL (0.90-2.90); Mean Corpuscular HGB Conc 31 gm/dL (32-36); Mean Corpuscular Hemoglobin 26 pg (26-34); Mean Corpuscular Volume 86 fL (80-100); Neutrophils Percent Auto 63.9 % (42.0-72.0); Platelet Count* 303 K/uL (140-440); RDW Coefficient of Variation % 16.3 % (11.5-15.5); Red Blood Count 4.44 m/uL (4.00-5.20); White Blood Count* 7.52 K/uL (4.50-11.00)
[2024-11-22 20:55] LABS: RBC Urine 0-2 (0-2); Squamous Epithelial Cell Urine Moderate (None-Few); WBC Urine 0-2 (0-5)
[2024-11-22 20:56] LABS: Slide Review Reflex No
--- NOTE | 2024-11-29 14:54 | ED.NURSE ---
Pt called inquiring about rx Dr. Hanson had told the pt she would send in this AM to the [facility] in [place]. Rx was not sent. Reviewed Dr. Hanson's note addendum and called [facility] to call in Amoxicillin 500mg TID for 7 days.
== END 2024-11-22 21:45 | disposition home or self-care (01) ==
PROVIDERS: Emergency Provider Family Medicine
DX: R42 Dizziness and giddiness (principal)
CPT/HCPCS: 36415; 70450; 70496; 70498; 80053; 81001; 85025; 96361; 96374; 99284; 99285; J3360; J7030; Q9967

== ENCOUNTER 2024-12-22 10:00 | Outpatient (RCR) | payer OTHER, SELFPAY | END 2025-04-21 23:59 | disposition home or self-care (01) | PROVIDERS: Visit Provider Family Medicine | DX: H81.10 Benign paroxysmal vertigo, unspecified ear (principal); Z51.89 Encounter for other specified aftercare | CPT/HCPCS: 95992; 97162; 97535 ==